=== PATIENT | female | born 1950 | race Caucasian/White ===

== ENCOUNTER 2016-09-21 11:15 | Emergency (ER) | payer MEDICARE ==
[~2016-09-21] VITALS: Ht 162.6 cm; Wt 68.0 kg
[~2016-09-21 11:15] MED LIST: BUTA1CAP5 PO; BYSTOLIC PO; COMPAZINE PO; COZAAR PO; IMITREX PO; MINOXIDIL PO; NIFEDIPINE PO
[2016-09-21] MEDS ORDERED: IBUPROFEN 600 MG TABLET PO ONE (11:45)
[2016-09-21] MEDS ORDERED: IBUPROFEN 600 MG TABLET ONE (12:01)
--- NOTE | 2016-09-21 12:50 | NUR ---
Patient discharged to home in stable conditon. Written and verbal after care instructions given. Patient verbalizes understanding of instructions.PT WALKS IN STEADY GAIT ACCOMPANIED BY FAMILY MEMBERS.
== END 2016-09-21 12:50 | disposition home or self-care (01) ==
LOC: ER 11:15
DX: S20.219A Contusion of unspecified front wall of thorax, initial encounter (principal); S13.4XXA Sprain of ligaments of cervical spine, initial encounter; I11.0 Hypertensive heart disease with heart failure; I50.9 Heart failure, unspecified; G43.909 Migraine, unspecified, not intractable, without status migrainosus; Z90.49 Acquired absence of other specified parts of digestive tract; E84.9 Cystic fibrosis, unspecified; M81.0 Age-related osteoporosis without current pathological fracture; V43.52XA Car driver injured in collision with other type car in traffic accident, initial encounter; Y93.89 Activity, other specified; Y92.413 State road as the place of occurrence of the external cause; Y99.9 Unspecified external cause status
CPT/HCPCS: 71020; 72040; 73030; 99284; A4663